=== PATIENT | female | born 2000 | race American Indian/Alaskan Native ===

== ENCOUNTER 2021-07-05 09:19 | Emergency (ER) | payer MEDICAID, OTHER ==
[2021-07-05 09:26] VITALS: BP 125/72
--- NOTE | 2021-07-05 09:27 | Emergency Department Report ---
ED Palpitations HPI - General Stated Complaint: CHEST PAIN Time Seen by Provider: 07/05/21 09:22 - History of Present Illness Initial Comments: Patient was brought in by ambulance secondary to chest pain. She had smoked marijuana and played basketball. She was resting in her car. She subsequently developed chest pain. This is a left chest pain. The pain was sharp and stabbing. It did not radiate or migrate. She states that she called an ambul ance because of the chest pain. She did not do any other drugs. EMS arrived. They stated that they did an EKG x2 that was unremarkable other than rate. Vital signs were unremarkable. They transported the patient here. She had been given fluids. Upon arrival, patient states that she feels better. She is not having any chest pain currently. She does not feel short of breath. There is no pain or swelling in the legs. There is no history of recent travel or trauma. Again she denied any other drug use. - Related Data Allergies Allergy/AdvReac Type Severity Reaction Status Date / Time No Known Allergies Allergy Verified 07/05/21 09:23 ED Review of Systems ROS: Stated complaint: CHEST PAIN Other details as noted in HPI Comment: All other systems reviewed and negative Constitutional: denies: fever ENT: denies: throat pain Respiratory: denies: cough Cardiovascular: as per HPI Gastrointestinal: denies: abdominal pain Musculoskeletal: denies: back pain Neurological: denies: weakness Psychiatric: denies: anxiety Hematological/Lymphatic: denies: easy bruising ED Past Medical Hx - Past Medical History Previous Medical History?: No - Family History Family history: no significant ED Physical Exam - General Limitations: No Limitations, Other ( Pulse ox noted and normal) General appearance: alert, in no apparent distress - Head Head exam: Present: atraumatic, normal inspection - Eye Eye exam: Present: normal appearance, EOMI. Absent: scleral icterus - ENT ENT exam: Present: normal external ear exam - Respiratory Respiratory exam: Present: normal lung sounds bilaterally. Absent: respiratory distress - Cardiovascular Cardiovascular Exam: Present: regular rate, normal rhythm - GI/Abdominal GI/Abdominal exam: Present: soft. Absent: tenderness - Extremities Exam Extremities exam: Absent: calf tenderness - Neurological Exam Neurological exam: Present: alert, oriented X3, normal gait. Absent: motor sensory deficit - Psychiatric Psychiatric exam: Present: normal affect, normal mood - Skin Skin exam: Present: warm, dry ED Course Vital Signs 07/05/21 09:23 Temperature 98 F Pulse Rate 102 H Respiratory 16 Rate Blood Pressure 125/72 [Left] O2 Sat by Pulse 100 Oximetry - Reevaluation(s) Reevaluation #1: 07/05/21 09:31 prehospital EKG was noted. Old records reviewed. Patient was discharged. ED Medical Decision Making - EKG Data -: EKG Interpreted by Me - EKG Data 07/05/21 09:32 Prehospital EKG shows sinus tachycardia at 130. There was no ST elevation to suggest infarct. There is no ST depression suggestive of ischemia. Intervals including QRS and QT corrected were normal. There was no ectopy. There is no old EKG for comparison. - Medical Decision Making Patient presents with chest pain that resolved. This occurred after smoking marijuana. There is no evidence of ongoing dysrhythmia. She certainly did not have risk factors for ACS. Patient did not have adventitious breath sounds suggestive of pneumonia. There is no other symptomatology that would suggest infectious process. She does not have diminished or absent breath sounds. She is not hypoxic. I do not believe clinically that this represents pulmonary embolism or pneumothorax or congestive heart failure. Patient was treated symp tomatically and discharged. Critical Care Time: No Critical care attestation.: If time is entered above; I have spent that time in minutes in the direct care of this critically ill patient, excluding procedure time. ED Disposition Clinical Impression: Left-sided chest pain, Marijuana use Disposition: 01 HOME / SELF CARE / HOMELESS Is pt being admited?: No Condition: Stable Instructions: Cannabis Use Disorder, Nonspecific Chest Pain, Adult, What You Need to Know About Marijuana Use Additional Instructions: Drink plenty water. Avoid caffeine and other stimulants. Do not use illegal drugs. Follow-up with your regular doctor for recheck and further evaluation. Referrals: PRIMARY CARE, [Referring] - 3-5 Days USMAN MENDOZA MD [Staff Physician] - 3-5 Days
== END 2021-07-05 09:43 | disposition home or self-care (01) ==
LOC: ED 09:19
DX: R07.89 Other chest pain (principal); F12.90 Cannabis use, unspecified, uncomplicated
CPT/HCPCS: 99283